=== PATIENT | female | born 1955 | race Caucasian/White ===

== ENCOUNTER 2017-11-03 10:59 | Emergency (ER) | payer SELFPAY ==
[2017-11-03] MEDS: KETOROLAC 30 MG INJ IM (15:23)
== END 2017-11-03 15:42 | disposition home or self-care (01) ==
LOC: FTE 10:59
DX: M54.41 Lumbago with sciatica, right side (principal); J45.909 Unspecified asthma, uncomplicated
CPT/HCPCS: 96372; 99284-25

== ENCOUNTER 2017-11-29 01:14 | Emergency (ER) | payer SELFPAY | END 2017-11-29 07:30 | disposition home or self-care (01) | LOC: FTE 01:14 | DX: R09.89 Other specified symptoms and signs involving the circulatory and respiratory systems (principal); J45.901 Unspecified asthma with (acute) exacerbation | CPT/HCPCS: 99284 ==

== ENCOUNTER 2018-04-06 15:32 | Emergency (ER) | payer SELFPAY ==
[2018-04-06] MEDS: KETOROLAC 30 MG INJ IM (16:20)
[2018-04-06] MEDS: DIAZEPAM 5 MG TAB PO (16:20)
== END 2018-04-06 17:11 | disposition home or self-care (01) ==
LOC: FTE 15:32
DX: M54.41 Lumbago with sciatica, right side (principal); J45.909 Unspecified asthma, uncomplicated
CPT/HCPCS: 96372; 99284-25